=== PATIENT | female | born 1985 | race Caucasian/White ===

== ENCOUNTER 2016-07-08 00:31 | Emergency (ER) | payer OTHER ==
--- NOTE | 2016-07-08 04:02 | ED ORDER SUMMARY ---
..... Patient: GEGE SHEPARD OrderSheet [facility] VisitID: [id number] [address] [place] [address] 30y, F Registration Date/Time: 07/08/2016 ORDER SHEET Weight: 68.0 kg (stated) Allergies: No Known Drug Allergy GENERAL ORDERS: UA-Culture if indicated Urgent (00:54 07/08/2016 Vicky R.N. verbal order read back to Shital WEINSTEIN) (Ack 0:55 AMcQuoid ER Tech1) Urine Urgent (00:54 07/08/2016 Vicky R.N. verbal order read back to Shital WEINSTEIN) (Ack 0:55 AMcQuoid ER Tech1) (Cancelled: Other1:21 JRomanelli R.N.) CBC w Diff Urgent (01:17 07/08/2016 Shital WEINSTEIN) (1:21 JRomanelli R.N.) (Ack 1:21 AMcQuoid ER Tech1) CMP Urgent (01:17 07/08/2016 Shital WEINSTEIN) (1:21 JRomanelli R.N.) (Ack 1:21 AMcQuoid ER Tech1) Lipase Urgent (01:07/08/2016 Shital WEINSTEIN) (1:21 JRomanelli R.N.) (Ack 1:21 AMcQuoid ER Tech1) Amylase Urgent (01:07/08/2016 Shital WEINSTEIN) (1:21 JRomanelli R.N.) (Ack 1:21 AMcQuoid ER Tech1) Culture, Stool Urgent (01:07/08/2016 Shital WEINSTEIN) (1:21 JRomanelli R.N.) (Ack 1:21 AMcQuoid ER Tech1) MEDICATION ORDERS: Phenergan IV 12.5 mg (HIGH ALERT MEDICATION, NOW) (03:34 07/08/2016 Sue R.N. verbal order read back to Shital WEINSTEIN) (3:35 SBalde R.N.) IV FLUIDS: IV Saline Lock (00:52 07/08/2016 Vicky R.N. verbal order read back to Shital WEINSTEIN) (1:20 Vicky Sawyer) IV NS : initial bolus none -, then 1000 mL/hr for X1 (NOW) (00:53 07/08/2016 Vicky Sawyer verbal order read back to Shital WEINSTEIN) (1:20 Vicky Sawyer) Zofran IV 4 mg (NOW) (01:17 07/08/2016 Shital WEINSTEIN) (1:42 Sue Sawyer) ORDER SHEET NOTES: [Electronically signed by Julieta Mckeon R.N. (04:07 07/08/2016)] [Electronically signed by Giuseppe Love MD (23:06 07/10/2016)] [Electronically locked/signed by Julieta Mckeon R.N. (04:07 07/08/2016)]
--- NOTE | 2016-07-08 04:02 | ED CLINICAL REPORT ---
Clinical Report - Physicians/Mid Levels [facility] [address] [place] [address] 07/08/2016 0:31 Patient: GEGE SHEPARD Time Seen: 01:10 Jul 08 2016. Arrived- By private vehicle. Historian- patient. CPT: ER phys charges level 4 (#[id number]). HISTORY OF PRESENT ILLNESS Chief Complaint: VOMITING. This started yesterday This started yesterday. Onset. (about 4 hours ago). She has had nausea, vomiting, diarrhea and abdominal pain. Last oral intake by patient was (5 hours ago). and is still present. The patient has had nausea, vomiting, diarrhea and abdominal pain. Possible bad food exposure. She has had contact with a sick child. The illness is described as moderate. Similar symptoms previously: None. Recent medical care: Not recently seen/assessed. REVIEW OF SYSTEMS No fever, muscle aches, headache, dizziness or sore throat. No cough, chest pain, difficulty breathing, skin rash or jaundice. No back pain. Denies current . All systems otherwise negative, except as recorded above. PAST HISTORY Hemorrhoids. ADDITIONAL SURGERIES: Tubal Ligation. Medications: Zoloft Oral 25 mg, daily. Allergies: No Known Drug Allergy. SOCIAL HISTORY Light tobacco smoker (cigarette)- less than 1/2 a pack per day. Occasional alcohol use. History of drug use: marijuana. ADDITIONAL NOTES The nursing notes have been reviewed. PHYSICAL EXAM Vital Signs: 07/08/2016 00:37 BP: 118/87. HR: 65. RR: 16. O2 saturation: 99%. Temp: 97.7 F. Pain level now: 5/10. Appearance: Alert. Patient in mild distress. Eyes: Eyes normal inspection. ENT: Dry mucous membranes present. Pharynx normal. Neck: Normal inspection. Neck supple. CVS: Normal heart rate and rhythm. Heart sounds normal. Pulses normal. Respiratory: No respiratory distress. Breath sounds normal. Abdomen: Soft. Mild tenderness in the epigastric area. Bowel sounds normal. Back: Normal inspection. Skin: Skin warm. Normal skin color. No rash. Extremities: No lower extremity edema. Neuro: Oriented X 3. No motor deficit. No sensory deficit. Reflexes normal. LABS, X-RAYS, AND EKG Laboratory Tests: CBC w Diff: (SHERMAN: 07/08/2016 00:50) ( MsgRcvd 07/08/2016 01:24) Final results Test Result Flag Units (Reference) WHITE BLOOD COUNT 19.0 H K/uL (4.5-11.5) RED BLOOD COUNT 4.50 M/uL (4.00-5.20) HEMOGLOBIN 13.6 gm/dL (12.0-16.0) HEMATOCRIT 40.2 % (36.0-46.0) MEAN CELL VOLUME 90 fL (80-100) MEAN CORPUSCULAR HGB 30 pg (26-34) MEAN CORPUSCULAR HGB CONC 34 g/dL (31-37) RED CELL DISTRIBUTION WIDTH 13.1 % (11.6-14.8) PLATELET COUNT 267 K/uL (150-400) NEUTROPHIL % 89.9 H % (50-75) LYMPH % 4.4 L % (25-40) MONO % 5.2 % (3-14) EOSINOPHIL % 0.5 % (0-4) BASOPHIL % 0 % (0-2) CMP: (SHERMAN: 07/08/2016 00:50) ( MsgRcvd 07/08/2016 01:34) Final results Test Result Flag Units (Reference) GLUCOSE 124 H mg/dL (70-110) BUN 9 mg/dL (7-18) CREATININE 0.6 mg/dL (0.6-1.3) Estimated GFR >60 mL/min Estimated GFR- >60 mL/min Note: Persistent reduction over 3 months in eGFR<60 mL/min/1.73 m2 defines CKD. Patients with eGFR values>=60 mL/min/1.73 m2 may also have CKD if evidence ofpersistent proteinuria. Additional information may be foundat www.[email or web address].org. SODIUM 139 mmol/L (136-145) POTASSIUM 3.5 mmol/L (3.5-5.1) CHLORIDE 103 mmol/L (98-107) CARBON DIOXIDE 21 mmol/L (21-32) CALCIUM 8.7 mg/dL (8.5-10.1) TOTAL PROTEIN 8.1 g/dL (6.4-8.2) ALBUMIN 4.2 g/dL (3.3-5.0) BILIRUBIN, TOTAL 0.8 mg/dL (0.0-1.0) ALKALINE PHOSPHATASE 47 U/L (46-116) AST (SGOT) 15 U/L (15-37) ALT (SGPT) 17 U/L (12-78) LIPASE 94 U/L (73-393) AMYLASE 59 U/L (25-115) . PROGRESS AND PROCEDURES Course of Care: IV NS times 3 liters. Zofran 4 mg IV Phenergan 12.5 mg IV Patient is stable. Symptoms much better. Elevated WBC most likely demargination due to strenuous and continuous emesis. Pt taking po now withou emesis. Pt feels well enough to go home. Patient/family counseled. Disposition: Discharged. Condition: stable and improved. CLINICAL IMPRESSION Gastroenteritis of unclear etiology. INSTRUCTIONS No strenuous activity. Rest. Do not work for two days until better. Take clear liquids only (frequent sips) for the next 24 hours until better. Advance diet as tolerated. Warnings: Further evaluation is necessary. SEDATIVE MEDICATION: You were given sedative medication during your visit. Do not drive or operate dangerous machinery. GENERAL WARNINGS: Return or contact your physician immediately if your condition worsens or changes unexpectedly, if not improving as expected, or if other problems arise. Your Current Medications: CONTINUE TAKING THE FOLLOWING MEDICATIONS: Zoloft Oral : 25 mg daily. Prescription Medications: Zofran (orally disintegrating tablets) 4 mg: take 1 orally every 4 hours as needed for nausea. Dispense fifteen (15). No refill. Substitution is permissible. Follow-up: Return to the emergency department if not better. Follow up with your doctor Monday in three days if not better. Understanding of the discharge instructions verbalized by patient and parent. (Electronically signed by Giuseppe Love MD 07/10/2016 23:06)
--- NOTE | 2016-07-08 04:02 | ED NURSING NOTES ---
Clinical Report - Nurses [facility] [address] [place] [address] 07/08/2016 0:31 Patient: GEGE SHEPARD TRIAGE Triage time 00:35 Jul 08 2016. Chief Complaint: ABDOMINAL PAIN, NAUSEA, VOMITING and DIARRHEA. Alert. KACEY COMA SCORE: Kacey Coma Scale: 15- eyes open spontaneously (4); best verbal response- oriented x 4 (5); best motor response- obeys commands (6). --00:48 Darrion Soto R.N. 00:37 07/08/16. BP: 118/87. HR: 65. RR: 16. O2 saturation: 99% on room air. Temp: 97.7 F (oral). Pain level now: 510. --00:48 Darrion Soto R.N. 00:51 07/08/16. Temp: 99.4 F (oral). Additional comments: Recheck. --00:52 Darrion Soto R.N. Weight: 68 kg stated. Height/Length: 66 inches Per Patient. BMI: 24.2. --00:40 Darrion Soto R.N. Medications Zoloft Oral 25 mg, daily. --00:40 Darrion Soto R.N. The following entry was struck and corrected by Darrion Soto R.N., 00:44 (07/08/16) Reason for correction - other(correction). <<STRICKEN ENTRY-- Zoloft Oral. --00:40 Darrion Soto R.N. --END STRIKE>>. Medication/allergy information source: the patient. --00:48 Darrion Soto R.N. Allergies No Known Drug Allergy. --00:40 Darrion Soto R.N. History Arrived by private vehicle. Historian: mother and patient. Accompanied by mother. Primary physician (Ashvin Arambula). ( Abdominal Pain associated with N/V/D). This started yesterday. Onset. (about 4 hours ago). She has had nausea, vomiting, diarrhea and abdominal pain. Last oral intake by patient was (5 hours ago). Treatment [employer]ESSER: None. PAST MEDICAL HX: Immunizations: up-to-date. Last normal menstrual period- about 2 months ago. Denies current . SOCIAL HX: Light tobacco smoker (cigarette)- less than 1/2 a pack per day. Alcohol use; consumes one glass of wine weekly. History of drug use: marijuana. No infectious disease exposure. ABUSE ASSESSMENT: No report of abuse. FALL RISK ASSESSMENT: Fall risk assessment completed. No fall risk identified. NUTRITIONAL RISK ASSESSMENT: The nutritional risk assessment revealed no deficiencies. FUNCTIONAL ASSESSMENT: Functional assessment: no impairments noted. LEARNING NEEDS ASSESSMENT: The learning needs assessment revealed no barriers. SKIN INTEGRITY ASSESSMENT: Skin integrity risk assessment completed. No skin integrity risk identified. --00:48 Darrion Soto R.N. PROBLEMS: Hemorrhoids. --00:40 Darrion Soto R.N. ADDITIONAL SURGERIES: Tubal Ligation. --00:40 Darrion Soto R.N. Interventions ID band on patient. To room. --00:48 Darrion Soto R.N. PHYSICAL ASSESSMENT Ambulatory to room. GENERAL / NEURO / PSYCH: Alert. Oriented X 4. Appears in pain. HEENT: Mucous membranes are pink. RESPIRATORY: Respirations not labored. CVS: Cardiac rhythm: (RRR). Capillary refill less than 2 seconds. GI / : Abdominal tenderness in the upper abdomen, right upper quadrant, epigastric area and left upper quadrant. Bowel sounds within normal limits. SKIN: Skin is warm and dry. --00:51 Darrion Soto R.N. NURSING PROGRESS NOTES Patient gowned. Reassurance given. Patient identifiers checked. Call light placed in reach. Side rails up x 1. Bed placed in lowest position. Brakes of bed on. Patient ready for evaluation- chart flagged and ED physician notified. --00:51 Darrion Soto R.N. 00:54 07/08/2016 Site #1 started via IV in the left antecubital space with an 20g angiocath; one attempt. Blood drawn: rainbow set. Labeled in the presence of the patient and sent to the lab. Saline lock flushed with 10 mL saline (sstaart by RORY Dalton). --01:20 Darrion Soto R.N. 01:05 07/08/2016 Started bag #1 1000 mL IV Fluids IV NS (Saline); at 1000 mL/hr over 60 minute(s) via site #1. Allergies verified and confirmed 5 rights. IV patency established. IV site checked: no pain, redness, or swelling. IV flushed thoroughly pre- and post-medication administration. --01:20 Darrion Soto R.N. 01:35 07/08/2016 Zofran (Ondansetron HCl) IVP 4 mg given over 2 minute(s) via site #1. IV patency established. IV site checked: no pain, redness, or swelling. IV flushed thoroughly pre- and post-medication administration. IVP given by RN. --01:42 Julieta Mckeon R.N. 01:42 07/08/2016 IV Fluids IV NS Bag Change: bag #1 completed. Total amount infused: 1000. STARTED bag #2 (1000 mL) at 1000 mL/hr via IV pump. IV patency established. IV site checked: no pain, redness, or swelling. IV flushed thoroughly. --01:42 Julieat Mckeon R.N. 02:32 07/08/2016 IV Fluids IV NS Bag Change: bag #2 completed. Total amount infused: 2000. STARTED bag #3 (1000 mL) at 1000 mL/hr via IV pump. IV patency established. IV site checked: no pain, redness, or swelling. IV flushed thoroughly. --03:33 Julieta Mckeon R.N. 03:00 07/08/2016 PHENERGAN (Promethazine HCl) IVP 12.5 mg given diluted in NS 10mL over 3 minute(s) via site #1. IV patency established. IV site checked: no pain, redness, or swelling. IV flushed thoroughly pre- and post-medication administration. IVP given by RN. --03:35 Julieta Mckeon R.N. 03:33 07/08/2016 IV Fluids IV NS Discontinued: bag #3 completed. Total amount infused: 3000 mL. IV patency established. IV site checked: no pain, redness, or swelling. IV flushed thoroughly. --03:33 Julieta Mckeon R.N. 03:31 07/08/16. BP: 99/51. HR: 67. RR: 18. O2 saturation: 99%. Pain level now 2/10. --03:38 Julieta Mckeon R.N. ( pt states she feels better and wants to leave. Tolerated ICE Chips, no vomiting for 45 mins.). --03:39 Julieta Mckeon R.N. 03:58 07/08/16. BP: 99/51. HR: 67. RR: 18. O2 saturation: 100%. --03:59 Julieta Mckeon R.N. DISPOSITION / DISCHARGE Departure time: 04:07 Jul 08 2016. Condition at departure: improved and stable. No learning barriers present. Discharge instructions provided and reviewed with the family. Reviewed medication(s). Work note given. Patient and family verbalized understanding. Written instructions provided in German. The patient was discharged by the physician. She was discharged home and accompanied by family. She left the Emergency Department ambulatory and via private vehicle. Family member driving. --04:07 Julieta Mckeon R.N. 04:06 07/08/16. BP: 99/51. HR: 67. RR: 18. O2 saturation: 100%. Pain level now 0/10. --04:07 Julieta Mckeon R.N. 04:07 07/08/2016 Site #1 removed upon discharge. Bandage applied. --04:07 Julieta Mckeon R.N. Locked/Released at 07/08/2016 4:07 by Julieta Mckeon R.N.
--- NOTE | 2016-07-08 04:02 | ED ORDER SUMMARY ---
..... Patient: GEGE SHEPARD OrderSheet [facility] VisitID: [id number] [address] [place] [address] 30y, F Registration Date/Time: 07/08/2016 ORDER SHEET Weight: 68.0 kg (stated) Allergies: No Known Drug Allergy GENERAL ORDERS: UA-Culture if indicated Urgent (00:54 07/08/2016 Vicky R.N. verbal order read back to Shital WEINSTEIN) (Ack 0:55 AMcQuoid ER Tech1) Urine Urgent (00:54 07/08/2016 Vicky R.N. verbal order read back to Shital WEINSTEIN) (Ack 0:55 AMcQuoid ER Tech1) (Cancelled: Other1:21 JRomanelli R.N.) CBC w Diff Urgent (01:17 07/08/2016 Shital WEINSTEIN) (1:21 JRomanelli R.N.) (Ack 1:21 AMcQuoid ER Tech1) CMP Urgent (01:17 07/08/2016 Shital WEINSTEIN) (1:21 JRomanelli R.N.) (Ack 1:21 AMcQuoid ER Tech1) Lipase Urgent (01:07/08/2016 Shital WEINSTEIN) (1:21 JRomanelli R.N.) (Ack 1:21 AMcQuoid ER Tech1) Amylase Urgent (01:07/08/2016 Shital WEINSTEIN) (1:21 JRomanelli R.N.) (Ack 1:21 AMcQuoid ER Tech1) Culture, Stool Urgent (01:07/08/2016 Shital WEINSTEIN) (1:21 JRomanelli R.N.) (Ack 1:21 AMcQuoid ER Tech1) MEDICATION ORDERS: Phenergan IV 12.5 mg (HIGH ALERT MEDICATION, NOW) (03:34 07/08/2016 Sue R.N. verbal order read back to Shital WEINSTEIN) (3:35 SBalde R.N.) IV FLUIDS: IV Saline Lock (00:52 07/08/2016 Vicky R.N. verbal order read back to Shital WEINSTEIN) (1:20 Vicky Sawyer) IV NS : initial bolus none -, then 1000 mL/hr for X1 (NOW) (00:53 07/08/2016 Vicky Sawyer verbal order read back to Shital WEINSTEIN) (1:20 Vicky Sawyer) Zofran IV 4 mg (NOW) (01:17 07/08/2016 Shital WEINSTEIN) (1:42 Sue Sawyer) ORDER SHEET NOTES: [Electronically signed by Julieta Mckeon R.N. (04:07 07/08/2016)] [Electronically signed by Giuseppe Love MD (23:06 07/10/2016)] [Electronically locked/signed by Julieta Mckeon R.N. (04:07 07/08/2016)]
--- NOTE | 2016-07-10 23:06 | ED MAR SUMMARY ---
..... Medication Administration Record [facility] [address] [place] [address] Patient: GEGE SHEPARD Visit ID: [id number] 30y, F Weight: 68.0 kg Height/Length: 66 in BMI: 24.2 ALLERGIES: No Known Drug Allergy Start 01:05 07/08/2016 Darrion Soto R.N., Stop 03:33 07/08/2016 Julieta Mckeon R.N. Medication Administered: IV NS (SALINE), Dose: IV Fluids over 60 minute(s), Rate: 1000 mL/hr, Dispensed: 1000 mL bag, Site: #1 left AC. Medication Ordered: IV NS : initial bolus none -, then 1000 mL/hr for X1 (NOW). Given 01:35 07/08/2016 Julieta Mckeon R.N. Medication Administered: ZOFRAN [IVP] (ONDANSETRON HCL), Dose: 4 mg IVP over 2 minute(s), Site: #1 left AC. Medication Ordered: Zofran IV 4 mg (NOW). Given 03:00 07/08/2016 Julieta Mckeon R.N. Medication Administered: PHENERGAN [IVP] (PROMETHAZINE HCL), Dose: 12.5 mg IVP over 3 minute(s), In: NS 10 mL, Site: #1 left AC. Medication Ordered: Phenergan IV 12.5 mg (HIGH ALERT MEDICATION, NOW).
--- NOTE | 2016-07-10 23:06 | ED MAR SUMMARY ---
..... Medication Administration Record [facility] [address] [place] [address] Patient: GEGE SHEPARD Visit ID: [id number] 30y, F Weight: 68.0 kg Height/Length: 66 in BMI: 24.2 ALLERGIES: No Known Drug Allergy Start 01:05 07/08/2016 Darrion Soto R.N., Stop 03:33 07/08/2016 Julieta Mckeon R.N. Medication Administered: IV NS (SALINE), Dose: IV Fluids over 60 minute(s), Rate: 1000 mL/hr, Dispensed: 1000 mL bag, Site: #1 left AC. Medication Ordered: IV NS : initial bolus none -, then 1000 mL/hr for X1 (NOW). Given 01:35 07/08/2016 Julieta Mckeon R.N. Medication Administered: ZOFRAN [IVP] (ONDANSETRON HCL), Dose: 4 mg IVP over 2 minute(s), Site: #1 left AC. Medication Ordered: Zofran IV 4 mg (NOW). Given 03:00 07/08/2016 Julieta Mckeno R.N. Medication Administered: PHENERGAN [IVP] (PROMETHAZINE HCL), Dose: 12.5 mg IVP over 3 minute(s), In: NS 10 mL, Site: #1 left AC. Medication Ordered: Phenergan IV 12.5 mg (HIGH ALERT MEDICATION, NOW).
--- NOTE | 2016-07-10 23:06 | ED DISCHARGE INSTRUCTIONS ---
Patient: GEGE SHEPARD General Instructions [facility] VisitID: [id number] [place] [address] 30y, F Registration Date/Time: 07/08/2016 Gastroenteritis of unclear etiology. INSTRUCTIONS No strenuous activity. Rest. Do not work for two days until better. Take clear liquids only (frequent sips) for the next 24 hours until better. Advance diet as tolerated. Warnings: Further evaluation is necessary. SEDATIVE MEDICATION: You were given sedative medication during your visit. Do not drive or operate dangerous machinery. GENERAL WARNINGS: Return or contact your physician immediately if your condition worsens or changes unexpectedly, if not improving as expected, or if other problems arise. Your Current Medications: CONTINUE TAKING THE FOLLOWING MEDICATIONS: Zoloft Oral : 25 mg daily. Prescription Medications: Zofran (orally disintegrating tablets) 4 mg: take 1 orally every 4 hours as needed for nausea. Dispense fifteen (15). No refill. Substitution is permissible. Follow-up: Return to the emergency department if not better. Follow up with your doctor Monday in three days if not better. Understanding of the discharge instructions verbalized by patient and parent. ADDITIONAL INFORMATION Clear Liquid Diet Clear liquids are any liquid that you can see through as well as those that are very easy to digest. This is used while the body is recovering from irritation or infection of the stomach or intestinal tract. It may also be used before special procedures or surgery. This diet is to be used no more than three days. You may include the following items. Adults Adults should drink a total of 23 quarts of liquid per day. It may be easier to drink small frequent servings rather than a few large ones. Liquids can include: Fruit juices.Strained orange juice or lemonade (no pulp), apple, grape and cranberry juice, clear fruit drinks, sports drinks Beverages.Sport drinks, sodas, mineral water (plain or flavored), tea, black coffee, liquid gelatin (add twice the recommended amount of water) Soups.Clear broth, consomm, bouillon Desserts.Plain gelatin, popsicles, fruit juice bars Children Over 2 years old The following liquids are acceptable for children over age 2: Fruit juices.Strained orange juice or lemonade (no pulp), apple, grape and cranberry juice, clear fruit drinks Beverages. Sports drinks, sodas, mineral water (plain or flavored), tea, liquid gelatin (add twice the recommended amount of water) Soups. Clear broth, consomm, bouillon Desserts. Plain gelatin, popsicles, fruit juice bars Children under 2 years old Oral rehydration fluids such are available at drug stores and most grocery stores without a prescription. Ondansetron Oral disintegrating tablet What is this medicine? ONDANSETRON (on MARTIN se lidia) is used to treat nausea and vomiting caused by chemotherapy. It is also used to prevent or treat nausea and vomiting after surgery. How should I use this medicine? These tablets are made to dissolve in the mouth. Do not try to push the tablet through the foil backing. With dry hands, peel away the foil backing and gently remove the tablet. Place the tablet in the mouth and allow it to dissolve, then swallow. While you may take these tablets with water, it is not necessary to do so. Talk to your clinical social worker regarding the use of this medicine in children. Special care may be needed. What side effects may I notice from receiving this medicine? Side effects that you should report to your doctor or health animal care specialist as soon as possible: allergic reactions like skin rash, itching or hives, swelling of the face, lips, or tongue breathing problems dizziness fast or irregular heartbeat feeling faint or lightheaded, falls fever and chills swelling of the hands and feet tightness in the chest Side effects that usually do not require medical attention (report to your doctor or health animal care specialist if they continue or are bothersome): constipation or diarrhea headache What may interact with this medicine? Do not take this medicine with any of the following medications: -apomorphine -cisapride -dofetilide -dronedarone -pimozide -thioridazine -ziprasidone This medicine may also interact with the following medications: -carbamazepine -phenytoin -rifampicin -tramadol -other medicines that prolong the QT interval (cause an abnormal heart rhythm) What if I miss a dose? If you miss a dose, take it as soon as you can. If it is almost time for your next dose, take only that dose. Do not take double or extra doses. Where should I keep my medicine? Keep out of the reach of children. Store between 2 and 30 degrees C (36 and 86 degrees F). Throw away any unused medicine after the expiration date. What should I tell my health care provider before I take this medicine? They need to know if you have any of these conditions: heart disease history of irregular heartbeat liver disease low levels of magnesium or potassium in the blood an unusual or allergic reaction to ondansetron, granisetron, other medicines, foods, dyes, or preservatives or trying to get breast-feeding What should I watch for while using this medicine? Check with your doctor or health animal care specialist as soon as you can if you have any sign of an allergic reaction. You have been given the following additional information: Diet, Clear Liquid Ondansetron Oral disintegrating tablet No strenuous activity. Rest. Do not work for two days until better. (Electronically signed by Giuseppe Love MD 07/10/2016 23:06)
--- NOTE | 2016-07-10 23:06 | ED MED RECONCILIATION SUMMARY ---
Patient: GEGE SHEPARD Medication Reconciliation Report [facility] VisitID: [id number] [address] [place] [address] 30y, F Registration Date/Time: 07/08/2016 Weight: 68.0 kg Height/Length: 66 in. BMI: 24.2 ALLERGIES: No Known Drug Allergy The patient's Home Medications are listed below: CONTINUE TAKING THE FOLLOWING MEDICATIONS: Zoloft Oral 25 mg, daily The source(s) of the original Home Medication information: patient The following Medications were given to the patient in the Emergency Department: IV NS IV Fluids bolus 0, then 1000 mL/hr, administered: 07/08/2016 1:05:00 AM Zofran [IVP] IVP 4 mg, administered: 07/08/2016 1:35:00 AM PHENERGAN [IVP] IVP 12.5 mg diluted in NS 10 mL, administered: 07/08/2016 3:00:00 AM The following Medications were prescribed to the patient: Zofran (orally disintegrating tablets) 4 mg: take 1 orally every 4 hours as needed for nausea. Dispense fifteen (15). No refill. Substitution is permissible. -- Giuseppe Love MD
--- NOTE | 2016-07-10 23:06 | ED DISCHARGE INSTRUCTIONS ---
Patient: GEGE SHEPARD General Instructions [facility] VisitID: [id number] [place] [address] 30y, F Registration Date/Time: 07/08/2016 Gastroenteritis of unclear etiology. INSTRUCTIONS No strenuous activity. Rest. Do not work for two days until better. Take clear liquids only (frequent sips) for the next 24 hours until better. Advance diet as tolerated. Warnings: Further evaluation is necessary. SEDATIVE MEDICATION: You were given sedative medication during your visit. Do not drive or operate dangerous machinery. GENERAL WARNINGS: Return or contact your physician immediately if your condition worsens or changes unexpectedly, if not improving as expected, or if other problems arise. Your Current Medications: CONTINUE TAKING THE FOLLOWING MEDICATIONS: Zoloft Oral : 25 mg daily. Prescription Medications: Zofran (orally disintegrating tablets) 4 mg: take 1 orally every 4 hours as needed for nausea. Dispense fifteen (15). No refill. Substitution is permissible. Follow-up: Return to the emergency department if not better. Follow up with your doctor Monday in three days if not better. Understanding of the discharge instructions verbalized by patient and parent. ADDITIONAL INFORMATION Clear Liquid Diet Clear liquids are any liquid that you can see through as well as those that are very easy to digest. This is used while the body is recovering from irritation or infection of the stomach or intestinal tract. It may also be used before special procedures or surgery. This diet is to be used no more than three days. You may include the following items. Adults Adults should drink a total of 23 quarts of liquid per day. It may be easier to drink small frequent servings rather than a few large ones. Liquids can include: Fruit juices.Strained orange juice or lemonade (no pulp), apple, grape and cranberry juice, clear fruit drinks, sports drinks Beverages.Sport drinks, sodas, mineral water (plain or flavored), tea, black coffee, liquid gelatin (add twice the recommended amount of water) Soups.Clear broth, consomm, bouillon Desserts.Plain gelatin, popsicles, fruit juice bars Children Over 2 years old The following liquids are acceptable for children over age 2: Fruit juices.Strained orange juice or lemonade (no pulp), apple, grape and cranberry juice, clear fruit drinks Beverages. Sports drinks, sodas, mineral water (plain or flavored), tea, liquid gelatin (add twice the recommended amount of water) Soups. Clear broth, consomm, bouillon Desserts. Plain gelatin, popsicles, fruit juice bars Children under 2 years old Oral rehydration fluids such are available at drug stores and most grocery stores without a prescription. Ondansetron Oral disintegrating tablet What is this medicine? ONDANSETRON (on MARTIN se lidia) is used to treat nausea and vomiting caused by chemotherapy. It is also used to prevent or treat nausea and vomiting after surgery. How should I use this medicine? These tablets are made to dissolve in the mouth. Do not try to push the tablet through the foil backing. With dry hands, peel away the foil backing and gently remove the tablet. Place the tablet in the mouth and allow it to dissolve, then swallow. While you may take these tablets with water, it is not necessary to do so. Talk to your dice table person regarding the use of this medicine in children. Special care may be needed. What side effects may I notice from receiving this medicine? Side effects that you should report to your doctor or health manager intensive care as soon as possible: allergic reactions like skin rash, itching or hives, swelling of the face, lips, or tongue breathing problems dizziness fast or irregular heartbeat feeling faint or lightheaded, falls fever and chills swelling of the hands and feet tightness in the chest Side effects that usually do not require medical attention (report to your doctor or health manager intensive care if they continue or are bothersome): constipation or diarrhea headache What may interact with this medicine? Do not take this medicine with any of the following medications: -apomorphine -cisapride -dofetilide -dronedarone -pimozide -thioridazine -ziprasidone This medicine may also interact with the following medications: -carbamazepine -phenytoin -rifampicin -tramadol -other medicines that prolong the QT interval (cause an abnormal heart rhythm) What if I miss a dose? If you miss a dose, take it as soon as you can. If it is almost time for your next dose, take only that dose. Do not take double or extra doses. Where should I keep my medicine? Keep out of the reach of children. Store between 2 and 30 degrees C (36 and 86 degrees F). Throw away any unused medicine after the expiration date. What should I tell my health care provider before I take this medicine? They need to know if you have any of these conditions: heart disease history of irregular heartbeat liver disease low levels of magnesium or potassium in the blood an unusual or allergic reaction to ondansetron, granisetron, other medicines, foods, dyes, or preservatives or trying to get breast-feeding What should I watch for while using this medicine? Check with your doctor or health manager intensive care as soon as you can if you have any sign of an allergic reaction. You have been given the following additional information: Diet, Clear Liquid Ondansetron Oral disintegrating tablet No strenuous activity. Rest. Do not work for two days until better. (Electronically signed by Giuseppe Love MD 07/10/2016 23:06)
--- NOTE | 2016-07-10 23:06 | ED MED RECONCILIATION SUMMARY ---
Patient: GEGE SHEPARD Medication Reconciliation Report [facility] VisitID: [id number] [address] [place] [address] 30y, F Registration Date/Time: 07/08/2016 Weight: 68.0 kg Height/Length: 66 in. BMI: 24.2 ALLERGIES: No Known Drug Allergy The patient's Home Medications are listed below: CONTINUE TAKING THE FOLLOWING MEDICATIONS: Zoloft Oral 25 mg, daily The source(s) of the original Home Medication information: patient The following Medications were given to the patient in the Emergency Department: IV NS IV Fluids bolus 0, then 1000 mL/hr, administered: 07/08/2016 1:05:00 AM Zofran [IVP] IVP 4 mg, administered: 07/08/2016 1:35:00 AM PHENERGAN [IVP] IVP 12.5 mg diluted in NS 10 mL, administered: 07/08/2016 3:00:00 AM The following Medications were prescribed to the patient: Zofran (orally disintegrating tablets) 4 mg: take 1 orally every 4 hours as needed for nausea. Dispense fifteen (15). No refill. Substitution is permissible. -- Giuseppe Love MD
== END 2016-07-08 04:06 | disposition home or self-care (01) ==
LOC: ED SRH 00:31
DX: K52.9 Noninfective gastroenteritis and colitis, unspecified (principal)
CPT/HCPCS: 90100; 90455; 92235; 92530; 95059

== ENCOUNTER 2016-08-20 16:47 | Emergency (ER) | payer OTHER ==
--- NOTE | 2016-08-20 19:58 | ED ORDER SUMMARY ---
..... Patient: GEGE SHEPARD OrderSheet [facility] VisitID: [id number] [address] [place] [address] 31y, F Registration Date/Time: 08/20/2016 ORDER SHEET Weight: 68.0 kg (stated) Allergies: No Known Drug Allergy GENERAL ORDERS: Lumbar Spine 2 or 3V Urgent (17:23 08/20/2016 HBivens A.R.N.P.) (Ack 17:26 Alfred) (17:28 JBest R.N.) MEDICATION ORDERS: Toradol IM 60 mg (NOW) (17:23 08/20/2016 HBivens A.R.N.P.) (17:43 JBest R.N.) Valium IM 5 mg (HIGH ALERT MEDICATION, NOW) (17:23 08/20/2016 HBivens A.R.N.P.) (17:44 JBest R.N.) IV FLUIDS: ORDER SHEET NOTES: [Electronically signed by Rell Pisano R.N. (20:08/20/2016)] [Electronically signed by Hannah DaviesR.N.PAlan (20:12 08/20/2016)] [Electronically locked/signed by Rell Pisano R.N. (20:08/20/2016)]
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
--- NOTE | 2016-08-20 19:58 | ED ORDER SUMMARY ---
..... Patient: GEGE SHEPARD OrderSheet [facility] VisitID: [id number] [address] [place] [address] 31y, F Registration Date/Time: 08/20/2016 ORDER SHEET Weight: 68.0 kg (stated) Allergies: No Known Drug Allergy GENERAL ORDERS: Lumbar Spine 2 or 3V Urgent (17:23 08/20/2016 HBivens A.R.N.P.) (Ack 17:26 Alfred) (17:28 JBest R.N.) MEDICATION ORDERS: Toradol IM 60 mg (NOW) (17:23 08/20/2016 HBivens A.R.N.P.) (17:43 JBest R.N.) Valium IM 5 mg (HIGH ALERT MEDICATION, NOW) (17:23 08/20/2016 HBivens A.R.N.P.) (17:44 JBest R.N.) IV FLUIDS: ORDER SHEET NOTES: [Electronically signed by Rell Pisano R.N. (20:08/20/2016)] [Electronically signed by Hannah DaviesR.N.PAlan (20:12 08/20/2016)] [Electronically locked/signed by Rell Pisano R.N. (20:08/20/2016)]
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
--- NOTE | 2016-08-20 20:08 | DIAGNOSTIC IMAGING REPORT ---
PROCEDURE: XR LUMBAR SPINE 2 OR 3 VIEWS INDICATION: LOWER BACK PAIN TECHNIQUE: Two views of the lumbar spine COMPARISON: None. FINDINGS: Rudimentary rib arcs at T12. Five true lumbar vertebral bodies are present. Normal vertebral body height without fracture. Minor lumbar levoscoliosis with the apex at L4-5 but normal AP alignment. Mildly decreased disc space loss posteriorly at L3-4. Otherwise normal disc spaces. No significant endplate or facet joint degeneration. The visible osseous pelvis and bowel gas pattern are normal. IMPRESSION: 1. Intact lumbar spine. 2. Mild leftward curvature and minor disc degeneration.
--- NOTE | 2016-08-20 20:12 | ED MAR SUMMARY ---
..... Medication Administration Record [facility] [address] [place] [address] Patient: GEGE SHEPARD Visit ID: [id number] 31y, F Weight: 68.0 kg Height/Length: 66 in BMI: 24.2 ALLERGIES: No Known Drug Allergy Given 17:08/20/2016 Giovanna Squires RAlanN. Medication Administered: TORADOL [IM] (KETOROLAC TROMETHAMINE), Dose: 60 mg IM. Medication Ordered: Toradol IM 60 mg (NOW). Given 17:08/20/2016 Giovanna Squires, R.N. Medication Administered: VALIUM [IM] (DIAZEPAM), Dose: 5 mg IM. Medication Ordered: Valium IM 5 mg (HIGH ALERT MEDICATION, NOW).
--- NOTE | 2016-08-20 20:12 | ED MED RECONCILIATION SUMMARY ---
Patient: GEGE SHEPARD Medication Reconciliation Report [facility] VisitID: [id number] [address] [place] [address] 31y, F Registration Date/Time: 08/20/2016 Weight: 68.0 kg Height/Length: 66 in. BMI: 24.2 ALLERGIES: No Known Drug Allergy The patient's Home Medications are listed below: THE FOLLOWING MEDICATIONS NEED TO BE RECONCILED: Clonopin Zoloft Oral ZyrTEC Allergy Childrens Oral The source(s) of the original Home Medication information: Not obtained. The following Medications were given to the patient in the Emergency Department: Toradol [IM] IM 60 mg, administered: 08/20/2016 5:43:00 PM Valium [IM] IM 5 mg, administered: 08/20/2016 5:43:00 PM The following Medications were prescribed to the patient: Flexeril 10 mg: Take 1 orally every 8 hours as needed for muscle spasm. Dispense twenty (20). No refills. Substitution is permissible. -- Hannah Davies, Jace.R.N.P. Ultram 50 mg tablets: take 1-2 orally every 6 hours as needed for pain. Dispense twenty (20). No refills. Substitution is permissible. -- Hannah Davies A.R.N.P.
--- NOTE | 2016-08-20 20:12 | ED DISCHARGE INSTRUCTIONS ---
Patient: GEGE SHEPARD General Instructions [facility] VisitID: [id number] [place] [address] 31y, F Registration Date/Time: 08/20/2016 Acute nontraumatic lumbar back pain. INSTRUCTIONS Warnings: GENERAL WARNINGS: Return or contact your physician immediately if your condition worsens or changes unexpectedly, if not improving as expected, or if other problems arise. SPECIFICALLY, return if you develop numbness or incontinence of urine (loss of bladder control). Prescription Medications: Flexeril 10 mg: Take 1 orally every 8 hours as needed for muscle spasm. Dispense twenty (20). No refills. Substitution is permissible. Ultram 50 mg tablets: take 1-2 orally every 6 hours as needed for pain. Dispense twenty (20). No refills. Substitution is permissible. Understanding of the discharge instructions verbalized by patient. Follow-up with: Carolyn Rodriguez MD, Nephrology, , [facility], [address] [place] [address] [address], [place], [address]; Nevin Taylor MD, Neurology, , [address] [facility] , , [place], [address]; Terence Langley MD, Neurology, , [address], , [place], [address] Follow up in about one week even if well. Call for an appointment. Summary of care provided to patient. ADDITIONAL INFORMATION Back Pain [Acute Or Chronic] Back pain is usually caused by an injury to the muscles or ligaments of the spine. Sometimes the disks that separate each bone in the spine may bulge and cause pain by pressing on a nearby nerve. Back pain may also appear after a sudden twisting/bending force (such as in a car accident), after a simple awkward movement, or lifting something heavy with poor body positioning. In either case, muscle spasm is often present and adds to the pain. Acute back pain usually gets better in one to two weeks. Back pain related to disk disease, arthritis in the spinal joints or spinal stenosis (narrowing of the spinal canal) can become chronic and last for months or years. Unless you had a physical injury (for example, a car accident or fall) X-rays are usually not ordered for the initial evaluation of back pain. If pain continues and does not respond to medical treatment, x-rays and other tests may be performed at a later time. Home Care: You may need to stay in bed the first few days. But, as soon as possible, begin sitting or walking to avoid problems with prolonged bed rest (muscle weakness, worsening back stiffness and pain, blood clots in the legs). When in bed, try to find a position of comfort. A firm mattress is best. Try lying flat on your back with pillows under your knees. You can also try lying on your side with your knees bent up towards your chest and a pillow between your knees. Avoid prolonged sitting. This puts more stress on the lower back than standing or walking. During the first two days after injury, apply an ICE PACK to the painful area for 20 minutes every 2-4 hours. This will reduce swelling and pain. HEAT (hot shower, hot bath or heating pad) works well for muscle spasm. You can start with ice, then switch to heat after two days. Some patients feel best alternating ice and heat treatments. Use the one method that feels the best to you. You may use acetaminophen (Tylenol) or ibuprofen (Motrin, Advil) to control pain, unless another pain medicine was prescribed. [NOTE: If you have chronic liver or kidney disease or ever had a stomach ulcer or GI bleeding, talk with your doctor before using these medicines.] Be aware of safe lifting methods and do not lift anything over 15 pounds until all the pain is gone. Follow Up with your doctor or this facility if your symptoms do not start to improve after one week. Physical therapy may be needed. [NOTE: If X-rays were taken, they will be reviewed by a radiologist. You will be notified of any new findings that may affect your care.] Get Prompt Medical Attention if any of the following occur: Pain becomes worse or spreads to your legs Weakness or numbness in one or both legs Loss of bowel or bladder control Numbness in the groin or genital area Cyclobenzaprine Hydrochloride Oral tablet What is this medicine? CYCLOBENZAPRINE (chris augustin) is a muscle relaxer. It is used to treat muscle pain, spasms, and stiffness. How should I use this medicine? Take this medicine by mouth with a glass of water. Follow the directions on the prescription label. If this medicine upsets your stomach, take it with food or milk. Take your medicine at regular intervals. Do not take it more often than directed. Talk to your elderly caregiver regarding the use of this medicine in children. Special care may be needed. What side effects may I notice from receiving this medicine? Side effects that you should report to your doctor or health emergency care attendant as soon as possible: allergic reactions like skin rash, itching or hives, swelling of the face, lips, or tongue chest pain fast heartbeat hallucinations seizures vomiting Side effects that usually do not require medical attention (report to your doctor or health emergency care attendant if they continue or are bothersome): headache What may interact with this medicine? Do not take this medicine with any of the following medications: cisapride droperidol flecainide grepafloxacin halofantrine levomethadyl MAOIs like Carbex, Eldepryl, Marplan, Nardil, and Parnate nilotinib pimozide probucol sertindole This medicine may also interact with the following medications: abarelix alcohol contrast dyes dolasetron guanethidine medicines for cancer medicines for depression, anxiety, or psychotic disturbances medicines to treat an irregular heartbeat medicines used for sleep or numbness during surgery or procedure methadone octreotide ondansetron palonosetron phenothiazines like chlorpromazine, mesoridazine, prochlorperazine, thioridazine some medicines for infection like alfuzosin, chloroquine, clarithromycin, levofloxacin, mefloquine, pentamidine, troleandomycin tramadol vardenafil What if I miss a dose? If you miss a dose, take it as soon as you can. If it is almost time for your next dose, take only that dose. Do not take double or extra doses. Where should I keep my medicine? Keep out of the reach of children. Store at room temperature between 15 and 30 degrees C (59 and 86 degrees F). Keep container tightly closed. Throw away any unused medicine after the expiration date. What should I tell my health care provider before I take this medicine? They need to know if you have any of these conditions: heart disease, irregular heartbeat, or previous heart attack liver disease thyroid problem an unusual or allergic reaction to cyclobenzaprine, tricyclic antidepressants, lactose, other medicines, foods, dyes, or preservatives or trying to get breast-feeding What should I watch for while using this medicine? Check with your doctor or health emergency care attendant if your condition does not improve within 1 to 3 weeks. You may get drowsy or dizzy when you first start taking the medicine or change doses. Do not drive, use machinery, or do anything that may be dangerous until you know how the medicine affects you. Stand or sit up slowly. Your mouth may get dry. Drinking water, chewing sugarless gum, or sucking on hard candy may help. Tramadol Hydrochloride Oral tablet What is this medicine? TRAMADOL (TRA ma dole) is a pain reliever. It is used to treat moderate to severe pain in adults. How should I use this medicine? Take this medicine by mouth with a full glass of water. Follow the directions on the prescription label. If the medicine upsets your stomach, take it with food or milk. Do not take more medicine than you are told to take. Talk to your elderly caregiver regarding the use of this medicine in children. Special care may be needed. What side effects may I notice from receiving this medicine? Side effects that you should report to your doctor or health emergency care attendant as soon as possible: allergic reactions like skin rash, itching or hives, swelling of the face, lips, or tongue breathing difficulties, wheezing confusion itching light headedness or fainting spells redness, blistering, peeling or loosening of the skin, including inside the mouth seizures Side effects that usually do not require medical attention (report to your doctor or health emergency care attendant if they continue or are bothersome): constipation dizziness drowsiness headache nausea, vomiting What may interact with this medicine? Do not take this medicine with any of the following medications: MAOIs like Carbex, Eldepryl, Marplan, Nardil, and Parnate This medicine may also interact with the following medications: alcohol or medicines that contain alcohol antihistamines benzodiazepines bupropion carbamazepine or oxcarbazepine clozapine cyclobenzaprine digoxin furazolidone linezolid medicines for depression, anxiety, or psychotic disturbances medicines for migraine headache like almotriptan, eletriptan, frovatriptan, naratriptan, rizatriptan, sumatriptan, zolmitriptan medicines for pain like pentazocine, buprenorphine, butorphanol, meperidine, nalbuphine, and propoxyphene medicines for sleep muscle relaxants naltrexone phenobarbital phenothiazines like perphenazine, thioridazine, chlorpromazine, mesoridazine, fluphenazine, prochlorperazine, promazine, and trifluoperazine procarbazine warfarin What if I miss a dose? If you miss a dose, take it as soon as you can. If it is almost time for your next dose, take only that dose. Do not take double or extra doses. Where should I keep my medicine? Keep out of the reach of children. Store at room temperature between 15 and 30 degrees C (59 and 86 degrees F). Keep container tightly closed. Throw away any unused medicine after the expiration date. What should I tell my health care provider before I take this medicine? They need to know if you have any of these conditions: brain tumor depression drug abuse or addiction head injury if you frequently drink alcohol containing drinks kidney disease or trouble passing urine liver disease lung disease, asthma, or breathing problems seizures or epilepsy suicidal thoughts, plans, or attempt; a previous suicide attempt by you or a family member an unusual or allergic reaction to tramadol, codeine, other medicines, foods, dyes, or preservatives or trying to get breast-feeding What should I watch for while using this medicine? Tell your doctor or health emergency care attendant if your pain does not go away, if it gets worse, or if you have new or a different type of pain. You may develop tolerance to the medicine. Tolerance means that you will need a higher dose of the medicine for pain relief. Tolerance is normal and is expected if you take this medicine for a long time. Do not suddenly stop taking your medicine because you may develop a severe reaction. Your body becomes used to the medicine. This does NOT mean you are addicted. Addiction is a behavior related to getting and using a drug for a non-medical reason. If you have pain, you have a medical reason to take pain medicine. Your doctor will tell you how much medicine to take. If your doctor wants you to stop the medicine, the dose will be slowly lowered over time to avoid any side effects. You may get drowsy or dizzy. Do not drive, use machinery, or do anything that needs mental alertness until you know how this medicine affects you. Do not stand or sit up quickly, especially if you are an older patient. This reduces the risk of dizzy or fainting spells. Alcohol can increase or decrease the effects of this medicine. Avoid alcoholic drinks. You may have constipation. Try to have a bowel movement at least every 2 to 3 days. If you do not have a bowel movement for 3 days, call your doctor or health emergency care attendant. Your mouth may get dry. Chewing sugarless gum or sucking hard candy, and drinking plenty of water may help. Contact your doctor if the problem does not go away or is severe. You have been given the following additional information: Back Pain (Acute Or Chronic) Cyclobenzaprine Hydrochloride Oral tablet Tramadol Hydrochloride Oral tablet (Electronically signed by Hannah Davies A.R.N.P. 08/20/2016 20:12)
--- NOTE | 2016-08-20 20:12 | ED MAR SUMMARY ---
..... Medication Administration Record [facility] [address] [place] [address] Patient: GEGE SHEPARD Visit ID: [id number] 31y, F Weight: 68.0 kg Height/Length: 66 in BMI: 24.2 ALLERGIES: No Known Drug Allergy Given 17:08/20/2016 Giovanna Squires RAlanN. Medication Administered: TORADOL [IM] (KETOROLAC TROMETHAMINE), Dose: 60 mg IM. Medication Ordered: Toradol IM 60 mg (NOW). Given 17:08/20/2016 Giovanna Squires, R.N. Medication Administered: VALIUM [IM] (DIAZEPAM), Dose: 5 mg IM. Medication Ordered: Valium IM 5 mg (HIGH ALERT MEDICATION, NOW).
--- NOTE | 2016-08-20 20:12 | ED DISCHARGE INSTRUCTIONS ---
Patient: GEGE SHEPARD General Instructions [facility] VisitID: [id number] [place] [address] 31y, F Registration Date/Time: 08/20/2016 Acute nontraumatic lumbar back pain. INSTRUCTIONS Warnings: GENERAL WARNINGS: Return or contact your physician immediately if your condition worsens or changes unexpectedly, if not improving as expected, or if other problems arise. SPECIFICALLY, return if you develop numbness or incontinence of urine (loss of bladder control). Prescription Medications: Flexeril 10 mg: Take 1 orally every 8 hours as needed for muscle spasm. Dispense twenty (20). No refills. Substitution is permissible. Ultram 50 mg tablets: take 1-2 orally every 6 hours as needed for pain. Dispense twenty (20). No refills. Substitution is permissible. Understanding of the discharge instructions verbalized by patient. Follow-up with: Carolyn Rodriguez MD, Nephrology, , [facility], [address] [place] [address] B, [place], [id number]; Nevin Taylor MD, Neurology, , [address] [facility] , , [place], [id number]; Terence Langley MD, Neurology, , [address] [place], , [place], [id number] Follow up in about one week even if well. Call for an appointment. Summary of care provided to patient. ADDITIONAL INFORMATION Back Pain [Acute Or Chronic] Back pain is usually caused by an injury to the muscles or ligaments of the spine. Sometimes the disks that separate each bone in the spine may bulge and cause pain by pressing on a nearby nerve. Back pain may also appear after a sudden twisting/bending force (such as in a car accident), after a simple awkward movement, or lifting something heavy with poor body positioning. In either case, muscle spasm is often present and adds to the pain. Acute back pain usually gets better in one to two weeks. Back pain related to disk disease, arthritis in the spinal joints or spinal stenosis (narrowing of the spinal canal) can become chronic and last for months or years. Unless you had a physical injury (for example, a car accident or fall) X-rays are usually not ordered for the initial evaluation of back pain. If pain continues and does not respond to medical treatment, x-rays and other tests may be performed at a later time. Home Care: You may need to stay in bed the first few days. But, as soon as possible, begin sitting or walking to avoid problems with prolonged bed rest (muscle weakness, worsening back stiffness and pain, blood clots in the legs). When in bed, try to find a position of comfort. A firm mattress is best. Try lying flat on your back with pillows under your knees. You can also try lying on your side with your knees bent up towards your chest and a pillow between your knees. Avoid prolonged sitting. This puts more stress on the lower back than standing or walking. During the first two days after injury, apply an ICE PACK to the painful area for 20 minutes every 2-4 hours. This will reduce swelling and pain. HEAT (hot shower, hot bath or heating pad) works well for muscle spasm. You can start with ice, then switch to heat after two days. Some patients feel best alternating ice and heat treatments. Use the one method that feels the best to you. You may use acetaminophen (Tylenol) or ibuprofen (Motrin, Advil) to control pain, unless another pain medicine was prescribed. [NOTE: If you have chronic liver or kidney disease or ever had a stomach ulcer or GI bleeding, talk with your doctor before using these medicines.] Be aware of safe lifting methods and do not lift anything over 15 pounds until all the pain is gone. Follow Up with your doctor or this facility if your symptoms do not start to improve after one week. Physical therapy may be needed. [NOTE: If X-rays were taken, they will be reviewed by a radiologist. You will be notified of any new findings that may affect your care.] Get Prompt Medical Attention if any of the following occur: Pain becomes worse or spreads to your legs Weakness or numbness in one or both legs Loss of bowel or bladder control Numbness in the groin or genital area Cyclobenzaprine Hydrochloride Oral tablet What is this medicine? CYCLOBENZAPRINE (chris augustin) is a muscle relaxer. It is used to treat muscle pain, spasms, and stiffness. How should I use this medicine? Take this medicine by mouth with a glass of water. Follow the directions on the prescription label. If this medicine upsets your stomach, take it with food or milk. Take your medicine at regular intervals. Do not take it more often than directed. Talk to your railroad purchasing agent regarding the use of this medicine in children. Special care may be needed. What side effects may I notice from receiving this medicine? Side effects that you should report to your doctor or health family day carer as soon as possible: allergic reactions like skin rash, itching or hives, swelling of the face, lips, or tongue chest pain fast heartbeat hallucinations seizures vomiting Side effects that usually do not require medical attention (report to your doctor or health family day carer if they continue or are bothersome): headache What may interact with this medicine? Do not take this medicine with any of the following medications: cisapride droperidol flecainide grepafloxacin halofantrine levomethadyl MAOIs like Carbex, Eldepryl, Marplan, Nardil, and Parnate nilotinib pimozide probucol sertindole This medicine may also interact with the following medications: abarelix alcohol contrast dyes dolasetron guanethidine medicines for cancer medicines for depression, anxiety, or psychotic disturbances medicines to treat an irregular heartbeat medicines used for sleep or numbness during surgery or procedure methadone octreotide ondansetron palonosetron phenothiazines like chlorpromazine, mesoridazine, prochlorperazine, thioridazine some medicines for infection like alfuzosin, chloroquine, clarithromycin, levofloxacin, mefloquine, pentamidine, troleandomycin tramadol vardenafil What if I miss a dose? If you miss a dose, take it as soon as you can. If it is almost time for your next dose, take only that dose. Do not take double or extra doses. Where should I keep my medicine? Keep out of the reach of children. Store at room temperature between 15 and 30 degrees C (59 and 86 degrees F). Keep container tightly closed. Throw away any unused medicine after the expiration date. What should I tell my health care provider before I take this medicine? They need to know if you have any of these conditions: heart disease, irregular heartbeat, or previous heart attack liver disease thyroid problem an unusual or allergic reaction to cyclobenzaprine, tricyclic antidepressants, lactose, other medicines, foods, dyes, or preservatives or trying to get breast-feeding What should I watch for while using this medicine? Check with your doctor or health family day carer if your condition does not improve within 1 to 3 weeks. You may get drowsy or dizzy when you first start taking the medicine or change doses. Do not drive, use machinery, or do anything that may be dangerous until you know how the medicine affects you. Stand or sit up slowly. Your mouth may get dry. Drinking water, chewing sugarless gum, or sucking on hard candy may help. Tramadol Hydrochloride Oral tablet What is this medicine? TRAMADOL (TRA ma dole) is a pain reliever. It is used to treat moderate to severe pain in adults. How should I use this medicine? Take this medicine by mouth with a full glass of water. Follow the directions on the prescription label. If the medicine upsets your stomach, take it with food or milk. Do not take more medicine than you are told to take. Talk to your railroad purchasing agent regarding the use of this medicine in children. Special care may be needed. What side effects may I notice from receiving this medicine? Side effects that you should report to your doctor or health family day carer as soon as possible: allergic reactions like skin rash, itching or hives, swelling of the face, lips, or tongue breathing difficulties, wheezing confusion itching light headedness or fainting spells redness, blistering, peeling or loosening of the skin, including inside the mouth seizures Side effects that usually do not require medical attention (report to your doctor or health family day carer if they continue or are bothersome): constipation dizziness drowsiness headache nausea, vomiting What may interact with this medicine? Do not take this medicine with any of the following medications: MAOIs like Carbex, Eldepryl, Marplan, Nardil, and Parnate This medicine may also interact with the following medications: alcohol or medicines that contain alcohol antihistamines benzodiazepines bupropion carbamazepine or oxcarbazepine clozapine cyclobenzaprine digoxin furazolidone linezolid medicines for depression, anxiety, or psychotic disturbances medicines for migraine headache like almotriptan, eletriptan, frovatriptan, naratriptan, rizatriptan, sumatriptan, zolmitriptan medicines for pain like pentazocine, buprenorphine, butorphanol, meperidine, nalbuphine, and propoxyphene medicines for sleep muscle relaxants naltrexone phenobarbital phenothiazines like perphenazine, thioridazine, chlorpromazine, mesoridazine, fluphenazine, prochlorperazine, promazine, and trifluoperazine procarbazine warfarin What if I miss a dose? If you miss a dose, take it as soon as you can. If it is almost time for your next dose, take only that dose. Do not take double or extra doses. Where should I keep my medicine? Keep out of the reach of children. Store at room temperature between 15 and 30 degrees C (59 and 86 degrees F). Keep container tightly closed. Throw away any unused medicine after the expiration date. What should I tell my health care provider before I take this medicine? They need to know if you have any of these conditions: brain tumor depression drug abuse or addiction head injury if you frequently drink alcohol containing drinks kidney disease or trouble passing urine liver disease lung disease, asthma, or breathing problems seizures or epilepsy suicidal thoughts, plans, or attempt; a previous suicide attempt by you or a family member an unusual or allergic reaction to tramadol, codeine, other medicines, foods, dyes, or preservatives or trying to get breast-feeding What should I watch for while using this medicine? Tell your doctor or health family day carer if your pain does not go away, if it gets worse, or if you have new or a different type of pain. You may develop tolerance to the medicine. Tolerance means that you will need a higher dose of the medicine for pain relief. Tolerance is normal and is expected if you take this medicine for a long time. Do not suddenly stop taking your medicine because you may develop a severe reaction. Your body becomes used to the medicine. This does NOT mean you are addicted. Addiction is a behavior related to getting and using a drug for a non-medical reason. If you have pain, you have a medical reason to take pain medicine. Your doctor will tell you how much medicine to take. If your doctor wants you to stop the medicine, the dose will be slowly lowered over time to avoid any side effects. You may get drowsy or dizzy. Do not drive, use machinery, or do anything that needs mental alertness until you know how this medicine affects you. Do not stand or sit up quickly, especially if you are an older patient. This reduces the risk of dizzy or fainting spells. Alcohol can increase or decrease the effects of this medicine. Avoid alcoholic drinks. You may have constipation. Try to have a bowel movement at least every 2 to 3 days. If you do not have a bowel movement for 3 days, call your doctor or health family day carer. Your mouth may get dry. Chewing sugarless gum or sucking hard candy, and drinking plenty of water may help. Contact your doctor if the problem does not go away or is severe. You have been given the following additional information: Back Pain (Acute Or Chronic) Cyclobenzaprine Hydrochloride Oral tablet Tramadol Hydrochloride Oral tablet (Electronically signed by Hannah Davies A.R.N.P. 08/20/2016 20:12)
--- NOTE | 2016-08-20 20:12 | ED MED RECONCILIATION SUMMARY ---
Patient: GEGE SHEPARD Medication Reconciliation Report [facility] VisitID: [id number] [address] [place] [address] 31y, F Registration Date/Time: 08/20/2016 Weight: 68.0 kg Height/Length: 66 in. BMI: 24.2 ALLERGIES: No Known Drug Allergy The patient's Home Medications are listed below: THE FOLLOWING MEDICATIONS NEED TO BE RECONCILED: Clonopin Zoloft Oral ZyrTEC Allergy Childrens Oral The source(s) of the original Home Medication information: Not obtained. The following Medications were given to the patient in the Emergency Department: Toradol [IM] IM 60 mg, administered: 08/20/2016 5:43:00 PM Valium [IM] IM 5 mg, administered: 08/20/2016 5:43:00 PM The following Medications were prescribed to the patient: Flexeril 10 mg: Take 1 orally every 8 hours as needed for muscle spasm. Dispense twenty (20). No refills. Substitution is permissible. -- Hannah Davies, Jace.R.N.P. Ultram 50 mg tablets: take 1-2 orally every 6 hours as needed for pain. Dispense twenty (20). No refills. Substitution is permissible. -- Hannah Davies A.R.N.P.
== END 2016-08-20 20:08 | disposition home or self-care (01) ==
LOC: ED SRH 16:47
DX: M54.5 Low back pain (principal); F17.210 Nicotine dependence, cigarettes, uncomplicated